=== PATIENT | male | born 1960 | race Caucasian/White ===

== ENCOUNTER → 2025-01-01 12:31 | Outpatient (CLI) | payer BC, SELFPAY ==
--- NOTE | 2025-01-01 12:34 | DI.US.S_ITS ---
PROCEDURE: US VENOUS INSUFFICIENCY BILAT INDICATIONS: SVT TECHNIQUE: Real time scanning was performed of the lower extremity venous system, with imaging documentation, as well as Color and pulse Doppler interrogation. COMPARISON: None. FINDINGS: RIGHT LOWER EXTREMITY: The deep veins are normally compressible, and free of intraluminal thrombus. Color and pulse Doppler demonstrate normal intravascular flow. There is normal augmentation with distal compression maneuver. No reflux. Greater saphenous vein (GSV): No reflux. . Anterior accessory GSV (AAGSV): Not identified. Small saphenous vein (SSV): No reflux. LEFT LOWER EXTREMITY: The deep veins are normally compressible, and free of intraluminal thrombus. Color and pulse Doppler demonstrate normal intravascular flow. There is normal augmentation with distal compression maneuver. No reflux. Greater saphenous vein (GSV): No reflux. Anterior accessory GSV (AAGSV): Not visualized. Small saphenous vein (SSV): No reflux. IMPRESSION: No deep or superficial venous reflux seen bilaterally. Dictated by: Getachew Preciado RR Interpreted: Julian Johnson MD on 01/02/2025 at 10:34 Transcribed by: DAMIAN on 01/02/2025 at 10:36 Approved by: Julian Johnson M.D. on 01/02/2025 at 16:12
--- NOTE | 2025-01-02 07:07 | DI.NM.S_ITS ---
DATE OF SERVICE: 01/01/2025 EXERCISE STRESS TEST INDICATION: SVT. CARDIAC STRESS: The patient underwent exercise stress test under the supervision of an attending staff. He walked on standard Luis protocol for 6 minutes and 44 seconds, achieved maximum heart rate of 155, which was 99% of target heart rate. Resting blood pressure 132/90 and peak blood pressure 230/100 with hypertensive blood pressure response. GREYSON positive 13.5%. 7 METs of workload. Baseline rhythm sinus with repolarization changes. During stress, no convincing ischemic changes. Rare PVCs. No chest pain. The patient had significant shortness of breath. However, oxygen saturation remained more than 96% during exercise. Normal recovery. CONCLUSION: Exercise stress test is negative for inducible ischemia. Diminished exercise tolerance. Hypertensive blood pressure response. No significant arrhythmias. No chest pain, however, significant shortness of breath during exercise with oxygen saturation remained more than 96%. The patient weighed 250 pounds. Correlate clinically. Smooth Riojas - SAMIRA/tiera/ARABELLA doc#: [id number]/job#: [id number] dd: 01/01/2025 17:10:00 dt: 01/01/2025 20:34:00 DICTATING /COPIES TO: Alta Ravi MD COPIES MNE: FAY;
== END ==
LOC: US 12:33
PROVIDERS: PCP Student in an Organized Health Care Education/Training Program; Referring Provider Internal Medicine Cardiovascular Disease; Visit Provider Internal Medicine Cardiovascular Disease
DX: I83.813 Varicose veins of bilateral lower extremities with pain (principal); I47.10 Supraventricular tachycardia, unspecified; I10 Essential (primary) hypertension
CPT/HCPCS: 93017; 93970